=== PATIENT | female | born 1990 | race Caucasian/White ===

== ENCOUNTER 2019-02-08 12:31 | Emergency (ER) | payer BC, OTHER ==
[2019-02-08 12:37] VITALS: BP 116/78; PULSE 119; RESP 20; TEMP 97.5
--- NOTE | 2019-02-08 13:10 | ED ---
General Adult HPI - General Chief complaint: Skin/Abscess/Foreign Body Stated complaint: skin problems Time Seen by Provider: 02/08/19 12:47 Source: patient, RN notes reviewed, old records reviewed Mode of arrival: ambulatory Limitations: no limitations - History of Present Illness Initial comments: Patient is a 28-year-old female who presents today with complaints of skin irritation over her neck chest and back. Patient reports symptoms started after she had symptoms after she [place] Patient states that the area of her neck opened up after she scratched it and pus was removed. Patient denies any recent fever, chills, shortness of breath, chest pain, back pain, abdominal pain, nausea vomiting, numbness or tingling, dysuria or hematuria, constipation or diarrhea, headaches or visual changes, or any other current symptoms - Related Data Previous Rx's Medication Instructions Recorded Mupirocin [Mupirocin 2%] 1 applic TOPICAL TID #60 gm 02/08/19 Sulfamethox-Tmp 800-160Mg [Bactrim 1 tab PO Q12HR #14 tab 02/08/19 DS 800-160 mg] Allergies Allergy/AdvReac Type Severity Reaction Status Date / Time No Known Allergies Allergy Verified 02/08/19 12:37 Review of Systems ROS Statement: Those systems with pertinent positive or pertinent negative responses have been documented in the HPI. ROS Other: All systems not noted in ROS Statement are negative. Past Medical History Past Medical History: Asthma History of Any Multi-Drug Resistant Organisms: None Reported Past Surgical History: Section Past Psychological History: Anxiety, Depression Smoking Status: Current every day smoker Past Alcohol Use History: None Reported Past Drug Use History: Methamphetamine General Exam - General Exam Comments Initial Comments: Is a 28-year-old female. No acute distress. General: Well appearing, well nourished, in no distress. Oriented x 3, normal mood and affect . Ambulating without difficulty. Skin: Good turgor, multiple lesions from arms legs and chest. The Patient picked these open. Patient has evidence of erythematous papules over the areas. There is some yellow crusting over concern for possible impetigo. Hair: Normal texture and distribution. HEENT: Head: Normocephalic, atraumatic, no visible or palpable masses, depressions, or scaring. Eyes: Visual acuity intact, conjunctiva clear, sclera non-icteric, EOM intact, PERRL. Neck: Supple, has a 2 cm area of erythema with central ulceration over the left aspect of her neck. Some crusting noted over the site. Concern for impetigo. Heart: No cardiomegaly or thrills; regular rate and rhythm, no murmur or gallop Lungs: Clear to auscultation and percussion Back: Spine normal without deformity or tenderness, no CVA tenderness Extremities: No amputations or deformities, cyanosis, edema or varicosities, peripheral pulses intact Musculoskeletal: Normal gait and station. No misalignment, asymmetry, crepitation, defects, tenderness, masses, effusions, decreased range of motion, instability, atrophy or abnormal strength or tone in the head, neck, spine, ribs, pelvis or extremities. Neurologic: CN 2-12 normal. Sensation to pain, touch, and proprioception normal. DTRs normal in upper and lower extremities. No pathologic reflexes. Psychiatric: Oriented X3, intact recent and remote memory, judgment and insight, normal mood and affect. Limitations: no limitations Course Vital Signs 02/08/19 12:33 Temperature 97.5 F L Pulse Rate 119 H Respiratory 20 Rate Blood Pressure 116/78 O2 Sat by Pulse 97 Oximetry Medical Decision Making - Medical Decision Making Patient is a 28-year-old female multiple skin lesions [place]. Patient has evidence of papules over her arms and back and chest and neck. She appears a scratches open some drainage was removed. Patient's lar gest is over his left side of her neck. I discussed treatment for concern for impetigo from the scratch lesions with mupirocin and oral antibiotic. I discussed close follow-up with primary care doctor. Disposition Clinical Impression: Impetigo, Skin lesions Disposition: HOME SELF-CARE Condition: Good Instructions (If sedation given, give patient instructions): Impetigo (ED), Folliculitis (ED) Additional Instructions: Please use medication as discussed. Please follow up with family doctor if symptoms have not improved over the next two days. Please return to the emergency room if your symptoms increase or worsen or for any other concerns. Prescriptions: Sulfamethox-Tmp 800-160Mg [Bactrim DS 800-160 mg] 1 tab PO Q12HR #14 tab Mupirocin [Mupirocin 2%] 1 applic TOPICAL TID #60 gm Is patient prescribed a controlled substance at d/c from ED?: No Referrals: None,Stated [Primary Care Provider] - 1-2 days Geri Quiles MD [STAFF PHYSICIAN] - 1-2 days Time of Disposition: 13:12
== END 2019-02-08 13:17 | disposition home or self-care (01) ==
LOC: EC 12:31
DX: L01.00 Impetigo, unspecified (principal); L98.9 Disorder of the skin and subcutaneous tissue, unspecified; F17.200 Nicotine dependence, unspecified, uncomplicated
CPT/HCPCS: 87070; 87205; 99283

== ENCOUNTER → 2021-12-17 | Outpatient (CLI) | payer OTHER ==
--- NOTE | 2021-12-18 07:45 | MM ---
Reason for Exam: Screening (asymptomatic). Baseline mammogram. Patient History: Menarche at age 11. First Full-Term at age 19. Mother had breast cancer under age 50. Prior Study Comparison: Patient's first Mammogram. Tissue Density: The breast tissue is heterogeneously dense. This may lower the sensitivity of mammography. Findings: Analyzed By CAD. There is no suspicious group of microcalcifications or new suspicious mass in either breast. Overall Assessment: Negative, BI-RAD 1 Management: Screening Mammogram of both breasts in 1 year. A clinical breast exam by your physician is recommended on an annual basis and results should be correlated with mammographic findings. Electronically signed and approved by: Ramana Ibrahim M.D. Radiologis
== END | disposition home or self-care (01) ==
LOC: RADMAMWWP 08:10
PROVIDERS: ATTEND Family Medicine
DX: Z12.31 Encounter for screening mammogram for malignant neoplasm of breast (principal); Z80.3 Family history of malignant neoplasm of breast
CPT/HCPCS: 77067

== ENCOUNTER → 2021-12-26 | Outpatient (CLI) | payer OTHER ==
--- NOTE | 2021-12-26 08:56 | US ---
EXAMINATION TYPE: US abdomen complete DATE OF EXAM: 12/26/2021 COMPARISON: NONE CLINICAL HISTORY: R35.0 FREQUENCY OF MICTURITION N94.10 DYSPAREUNIA. Hx gallstones. EXAM MEASUREMENTS: Liver Length: 12.4 cm Gallbladder Wall: 0.23 cm CBD: 0.62 cm Spleen: 9.1 cm Right Kidney: 11.3 x 5.7 x 4.8 cm Left Kidney: 11.8 x 4.7 x 5.2 cm Limited due to gas. Pancreas: Limited, duct measures 0.3 cm at body. Liver: No abnormalities seen. Gallbladder: Folds seen, appears anechoic. Evidence for sonographic Garza's sign: No CBD: Measures upper limits of normal. Spleen: Appears wnl Right Kidney: No hydronephrosis or masses seen Left Kidney: No hydronephrosis or masses seen Upper IVC: Appears wnl Abd Aorta: Distal and iliacs were obscured by gas. IMPRESSION: No discrete abnormality seen at this time.
--- NOTE | 2021-12-26 08:57 | US ---
EXAMINATION TYPE: US pelvis complete transvag DATE OF EXAM: 12/26/2021 COMPARISON: NONE CLINICAL HISTORY: R35.0 FREQUENCY OF MICTURITION N94.10 DYSPAREUNIA. Dyspareunia, hx C section. Patie nt is on depo shot. . TECHNIQUE: Transvaginal (TV) and Transabdominal (TA) . Transabdominal sonographic images of the pel vis were acquired. Transvaginal sonographic images were medically necessary to better assess the fol lowing anatomy: Upper uterus, left ovary. Date of LMP: 4 months ago per patient, pt on depo shot. EXAM MEASUREMENTS: Uterus: 6.7 x 4.7 x 4.0 cm Endometrial Stripe: 0.22 cm Right Ovary: 3.5 x 2.5 x 1.6 cm Left Ovary: 3.2 x 2.4 x 1.7 cm 1. Uterus: Retroverted Anechoic area seen within lower uterus/cervix: 0.9 x 0.8 x 0.7 cm. Possible fluid seen within cervical canal: 1.5 x 0.7 x 0.7 cm. 2. Endometrium: Measures 0.22 cm. 3. Right Ovary: Follicles seen. 4. Left Ovary: Follicles seen. 5. Bilateral Adnexa: Fluid seen left adnexa: 1.9 x 0.6 x 0.8 cm. 6. Posterior cul-de-sac: Appears wnl IMPRESSION: 1. Bilateral ovarian follicles with a small amount of fluid noted adjacent to the left adnexa. 2. Smaller fluid within the endocervical canal.
== END | disposition home or self-care (01) ==
LOC: RADUSWWP 06:55
PROVIDERS: ATTEND Family Medicine
DX: R35.0 Frequency of micturition (principal); N94.10 Unspecified dyspareunia
CPT/HCPCS: 76700; 76830; 76856

== ENCOUNTER → 2023-06-01 | Outpatient (CLI) | payer OTHER ==
--- NOTE | 2023-06-02 09:14 | MM ---
Reason for Exam: Screening (asymptomatic). Last mammogram was performed 1 year(s) and 6 month(s) ago. Patient History: Menarche at age 11. First Full-Term at age 19. Mother had breast cancer under age 50. Prior Study Comparison: 12/17/2021 Bilateral MG screening mammo w CAD, [facility]. Tissue Density: The breast tissue is heterogeneously dense. This may lower the sensitivity of mammography. Findings: Analyzed By CAD. There is no suspicious group of microcalcifications or new suspicious mass in either breast. Overall Assessment: Benign, BI-RAD 2 Management: Screening Mammogram of both breasts in 1 year. . Patient should continue monthly self-breast exams. A clinical breast exam by your physician is recommended on an annual basis. This exam should not preclude additional follow-up of suspicious palpable abnormalities. Note on Chanelle scores and lifetime risk: 1. A Chanelle score greater than 3% is considered moderate risk. If this is the case, consider specialist referral to assess eligibility for a risk reducing agent. 2. If overall lifetime risk for the development of breast cancer is 20% or higher, the patient may qualify for future screening with alternating mammogram and breast MRI. Electronically signed and approved by: Ramana Ibrahim M.D. Radiologis
== END | disposition home or self-care (01) ==
LOC: RADMAMWWP 07:33
PROVIDERS: ATTEND Family Medicine
DX: Z12.31 Encounter for screening mammogram for malignant neoplasm of breast (principal); Z80.3 Family history of malignant neoplasm of breast
CPT/HCPCS: 77067

== ENCOUNTER → 2023-10-05 | Outpatient (CLI) | payer BC, OTHER ==
--- NOTE | 2023-10-05 18:11 | US ---
EXAMINATION TYPE: US thyroid st tissue head/neck DATE OF EXAM: 10/05/2023 COMPARISON: NONE CLINICAL INDICATION: Female, 33 years old with history of E04.1 NONTOXIC SINGLE THYROID NODULE; Enlar ged thyroid GLAND SIZE: Right Lobe: 5.3 x 1.9 x 1.9 cm Overall Parenchyma: homogenous Left Lobe: 5.0 x 1.4 x 1.8 cm Overall Parenchyma: homogenous Isthmus Thickness: 0.35 cm NODULES RIGHT: # of nodules measured on right: 0 LEFT: # of nodules measured on left: 0 ISTHMUS: # of nodules measured in the isthmus: 0 Subcentimeter nodule noted within the left lobe of the thyroid IMPRESSION: No thyroid nodules that meet criteria for characterization by TI-RADS criteria. No acute process.
== END | disposition home or self-care (01) ==
LOC: RADUSWWP 16:19
PROVIDERS: ATTEND Otolaryngology
DX: E04.1 Nontoxic single thyroid nodule (principal)
CPT/HCPCS: 76536

== ENCOUNTER → 2023-10-16 | Outpatient (CLI) | payer BC ==
[2023-10-16 18:37] LABS: T4, Free (Free Thyroxine) 1.55 ng/dL (0.80-1.80)
== END | disposition home or self-care (01) ==
LOC: LABWHC1 13:34
PROVIDERS: ATTEND Otolaryngology
DX: R53.83 Other fatigue (principal)
CPT/HCPCS: 36415; 84439; 84443; 86376

== ENCOUNTER → 2024-07-01 | Outpatient (CLI) | payer BC, OTHER ==
[2024-07-01 15:33] LABS: Basophils # (A) 0.04 X 10*3/uL (0.00-0.10); Basophils % (A) 0.6 %; Eosinophils # (A) 0.21 X 10*3/uL (0.04-0.35); HCT 43.7 % (37.2-46.3); HGB 14.1 g/dL (12.0-15.0); Lymphocytes # (A) 2.38 X 10*3/uL (0.90-5.00); Lymphocytes % (A) 34.2 %; MCH 29.4 pg (27.0-32.0); MCHC 32.3 g/dL (32.0-37.0); MCV 91.2 FL (80.0-97.0); Mean Platelet Volume 11.3 FL (9.5-12.2); Monocytes # (A) 0.59 X 10*3/uL (0.20-1.00); Monocytes % (A) 8.5 %; NRBC Per 100 WBC 0 X 10*3/uL (0.00-0.01); Neutrophils % (A) 53.1 %; Platelet Count 280 X 10*3/uL (140-440); RBC 4.79 X 10*6/uL (4.10-5.20); RDW 12.4 % (11.5-14.5); WBC 6.96 X 10*3/uL (4.50-10.00)
[2024-07-01 16:05] LABS: Chol/HDL Ratio 4.19 Ratio
[2024-07-01 16:06] LABS: ALT 24 U/L (8-44); AST 20 U/L (13-35); Albumin 4.8 g/dL (3.8-4.9); Albumin/Globulin Ratio 1.85 Ratio (1.60-3.17); Alkaline Phosphatase 65 U/L (41-126); Calcium 9.8 mg/dL (8.7-10.3); Carbon Dioxide 21.6 mmol/L (21.6-31.8); Chloride 104 mmol/L (96-109); Globulin 2.6 g/dL (1.6-3.3); Glucose 100 mg/dL (70-110); Potassium 4.3 mmol/L (3.5-5.5); Sodium 140 mmol/L (135-145); Total Bilirubin 0.5 mg/dL (0.3-1.2); Total Protein 7.4 g/dL (6.2-8.2)
== END | disposition home or self-care (01) ==
LOC: LABWHC1 09:04
PROVIDERS: ATTEND Family Medicine
DX: F41.8 Other specified anxiety disorders (principal); Z80.3 Family history of malignant neoplasm of breast
CPT/HCPCS: 36415; 80053; 80061; 82306; 82607; 83036; 84443; 85025